=== PATIENT | female | born 1985 | race Caucasian/White ===

== ENCOUNTER 2019-06-16 13:45 | Outpatient (RCR) | payer OTHER, SELFPAY ==
--- NOTE | 2019-04-03 18:24 | PT.OIE ---
Current Diagnoses Separation of muscle (nontraumatic), other site (04/02/19) Past Medical History (Last Updated 08/28/18 @ 21:54 by Lissa Gomez) Asthma (Chronic ~1999) Heavy menstrual period (Chronic ~05/2017) Chicken pox (Resolved ~1988) Past Surgical History (Last Updated 08/28/18 @ 21:54 by Lisas Gomez) Anesthesia (Resolved) History of third molar tooth extraction (~2005) Status post appendectomy (02/05/17) Status post delivery (02/28/14) Status post delivery (10/17/16) Provider Visit Care Team Role Provider Type Keyanna Camara MD Attending Provider Physician Primary Care Provider Specialty: [facility] Practice Address: [address] [place] [address] Email: [email or web address] Physical Therapy Initial Evaluation PT-OP-A Visit Information Start: 04/03/19 17:40 Freq: Status: Active Protocol: Document 04/02/19 11:15 [facility] (Rec: 04/03/19 18:24 [facility] [email or web address]) Out-Patient Physical Therapy Visit Information Visit Information Visit Type Initial Evaluation Visit Note 33 year old female s/p 2 C section deliveries the last one being in December of 2016. She reports she began feeling symptoms of abdominal seperation after her first and C section and then symptoms progressed following her second She also had appendicitis 3 months and underwent surgery for that . She notes feeling weak in her core and has a separation of her abdominal wall. She does report some urinary leakage with cough or sneeze. Visit Start Time 11:15 Visit Stop Time 12:00 Total Visit Minutes 45 Visit Number 1 Evaluation Information Evaluation Date 04/02/19 PT-OP-B Current Condition Start: 04/03/19 17:40 Freq: Status: Active Protocol: Document 04/02/19 11:15 [facility] (Rec: 04/03/19 18:24 [facility] [email or web address]) Current Condition History of Current Condition Onset Date 2 years ago 2017 Current Complaints abdominal separation and weakness of the core Treatment Goals Patient/Caregiver Goals To improve lower abdominal strength and feel like she can work her abdominals safely without harm Current Functional Impairments (Reported) Functional Limitations- ADL's weakness with activities that require trunk control including lifting, bending and abdominal work PT-OP-F Manual Assessment Start: 04/03/19 17:40 Freq: Status: Active Protocol: Document 04/02/19 11:15 [facility] (Rec: 04/03/19 18:24 [facility] [email or web address]) Manual Assessments Soft Tissue Assessment Soft Tissue Mobility Assessment tightness of the lumbar and lower thoracic paraspinals 3 finger width diastasis seperation proximal to umbilicus and 4 finger width distal to umbilicus Joint Mobility Assessment Joint Mobility Assessment lacks full lumbar spine flexion, tends to stay in extension + ALSR test B with abdominal bulge when attempting to lift her legs Other Manual Assessments Other Manual Assessments decreased lumbar active ROM in standing and difficulty laying flat in supine PT-OP-J Posture/Palpation/Skin Start: 04/03/19 17:40 Freq: Status: Active Protocol: Document 04/02/19 11:15 [facility] (Rec: 04/03/19 18:24 [facility] [email or web address]) Palpation Assessment Location One Palpation Location thoracic and lumbar paraspinals Palpation Findings Soft Tissue Tightness Muscle Guarding PT-OP-M Strength Start: 04/03/19 17:40 Freq: Status: Active Protocol: Document 04/02/19 11:15 [facility] (Rec: 04/03/19 18:24 [facility] [email or web address]) Trunk Strength Trunk Manual Muscle Testing Testing Position Supine Flexion 2+ Poor+ Core Stabilization poor core control of lower abdominal muscles, abdominal bulging present with active leg movements PT-OP-Q Treatments Start: 04/03/19 17:40 Freq: Status: Active Protocol: Document 04/02/19 11:15 AM[facility] (Rec: 04/03/19 18:24 [facility] [email or web address]) Therapeutic Exercises Supine Exercises 1 Supine Exercise Name TA engagement with heel slide and marches Side bilateral Comments using hand held mirror to avoid the abdominal bulge Other Exercises 2 Other Exercise Name Quadraped TA facilitation Side bilateral Reps/Minutes x 10 reps 1 Other Exercise Name quadruped pelvic tilts Reps/Minutes x 10 reps PT-OP-T Assessment and Plan Start: 04/03/19 17:40 Freq: Status: Active Protocol: Document 04/02/19 11:15 AM[facility] (Rec: 04/03/19 18:24 [facility] [email or web address]) Physical Therapy Assessment Rehab Potential Rehabilitation Potential Excellent Impairments Impairments Activity Tolerance Functional Activities Functional Mobility ROM Soft Tissue Mobility Strength Tone Goals Three Impairment Decreased lumbar flexion and tightness of the paraspinals, anterior pelvis Senior Care Goal (LTG) Nesha presents with improved lumbar motion into flexion and there is decreased guarding of the lumbar parapsinals creating the ability for her pelvis to rest in neutral rather than a anterior pelvic tilt. Two Impairment Instability of the SI joint and pelvis + ASLR test B Short Term Goal (STG) With proper stabilization Nesha is able to move her hips independent of her pelvis moving STG Duration 4-6 weeks [employer] Goal (LTG) With proper stabilization Nesha is able to perform a split squat without abdominal bulging and good SI support LTG Duration 8 weeks One Impairment Abdominal bulging and separation with diastasis recti Short Term Goal (STG) Nesha is educated on Transverse abdominal facilitation prior to LE movement in a supine position and she is able to control abdominal bulging with heel slides STG Duration 4 weeks Senior Care Goal (LTG) Nesha is able to control abdominal bulging with a gentle curl up using her transverse abdominal muscles LTG Duration 6-8 weeks Assessment Summary Assessment Nesha presents to physical therapy today with diastiasis of 3 finger width proximal to her umbilicus and 4 finger width distal to her umbilicus. She is weak in her deep transverse abdominal muscles and pelvic floor as well as her rectus abdominus. She demonstrates abdominal bulging with any leg movement in a supine position. Her low back muscles are also very tight causing her to arch her back and it is difficult to fully flex her spine. Today I started her with neuro re- education of her pelvic floor and transverse abdominal wall. After verbal cueing she was able to facilitate her Transverse abdominals and could perform a heel slide keeping the abdominal wall from bulging. I had Nesha use a hand help mirror for biofeedback to avoid bulging as she is working on her exercises. She is a good candidate for PT and treatment will include neuro re- education of the pelvic floor and transverse abdominal muscles, postural cues and education, body mechanics training and stretching program. Manual therapy for improved lumbar spine mobility will also be used. Thank you for this referral Physical Therapy Plan Frequency and Duration Frequency of Treatment 1x/Week Duration of Treatment 8 weeks Plan of Care Start Date 04/02/19 Plan of Care End Date 05/28/19 Therapeutic Interventions Therapeutic Interventions Home Exercise Program Manual Therapy Neuromuscular Re-education Patient/Caregiver Education Self-Care/Home Management Soft Tissue Mobilization Therapeutic Exercises Modalities Biofeedback Next Visit Focus/Plan Next Note Type Treatment Note Next Visit Plan Review quadruped Transverse abdominal stabilization and facilitation in supine, progress pelvic floor stabilization as tolerated
--- NOTE | 2019-04-08 17:21 | PT.OTN ---
Current Diagnoses Separation of muscle (nontraumatic), other site (04/08/19) Physical Therapy Treatment Note PT-OP-A Visit Information Start: 04/03/19 17:40 Freq: Status: Active Protocol: Document 04/08/19 16:59 AMH (Rec: 04/08/19 17:20 [facility] [email or web address]) Out-Patient Physical Therapy Visit Information Visit Information Visit Type Treatment Note Visit Start Time 16:00 Visit Stop Time 16:45 Total Visit Minutes 45 Visit Number 2 Evaluation Information Evaluation Date 04/02/19 PT-OP-B Current Condition Start: 04/03/19 17:40 Freq: Status: Active Protocol: Document 04/02/19 11:15 AMH (Rec: 04/03/19 18:24 [facility] [email or web address]) Current Condition History of Current Condition Onset Date 2 years ago 2017 Current Complaints abdominal seperation and weakness of the core Treatment Goals Patient/Caregiver Goals To improve lower abdominal strength and feel like she can work her abdominals safely without harm Current Functional Impairments (Reported) Functional Limitations- ADL's weakness with activities that require trunk control including lifting, bending and abdominal work PT-OP-C Subjective Start: 04/03/19 17:40 Freq: Status: Active Protocol: Document 04/08/19 17:20 AMH (Rec: 04/08/19 17:20 [facility] [email or web address]) OP-PT Subjective Patient Comments Patient Comments Nesha reports she has been working on her execises, her low back has been a little sore but she notes she also started her period so she is not sure what caused the soreness PT-OP-F Manual Assessment Start: 04/03/19 17:40 Freq: Status: Active Protocol: Document 04/02/19 11:15 AMH (Rec: 04/03/19 18:24 AMH [email or web address]) Manual Assessments Soft Tissue Assessment Soft Tissue Mobility Assessment tightness of the lumbar and lower thoracic paraspinals 3 finger width diastasis seperation proximal to umbilicus and 4 finger width distal to umbilicus Joint Mobility Assessment Joint Mobility Assessment lacks full lumbar spine flexion, tends to stay in extension + ALSR test B with abdominal bulge when attempting to lift her legs Other Manual Assessments Other Manual Assessments decreased lumbar active ROM in standing and difficulty laying flat in supine PT-OP-J Posture/Palpation/Skin Start: 04/03/19 17:40 Freq: Status: Active Protocol: Document 04/02/19 11:15 AMH (Rec: 04/03/19 18:24 [facility] [email or web address]) Palpation Assessment Location One Palpation Location thoracic and lumbar paraspinals Palpation Findings Soft Tissue Tightness Muscle Guarding PT-OP-M Strength Start: 04/03/19 17:40 Freq: Status: Active Protocol: Document 04/02/19 11:15 AMH (Rec: 04/03/19 18:24 [facility] [email or web address]) Trunk Strength Trunk Manual Muscle Testing Testing Position Supine Flexion 2+ Poor+ Core Stabilization poor core control of lower abdominal muscles, abdominal bulging present with active leg movements PT-OP-Q Treatments Start: 04/03/19 17:40 Freq: Status: Active Protocol: Document 04/08/19 16:59 AMH (Rec: 04/08/19 17:20 [facility] [email or web address]) Therapeutic Exercises Supine Exercises 5 Supine Exercise Name 1/2 foam roll stretch Reps/Minutes x 4 min 4 Supine Exercise Name ball squeeze with bridge Reps/Minutes x 10 reps Comments worked on segmental raising and lowering 3 Supine Exercise Name jimmy test position iliopsoas stretch Reps/Minutes bilateral x 1 min each 2 Supine Exercise Name TA faciliatation with SLR on right side only Comments held off on left side due to increased bulge 1 Supine Exercise Name TA engagement with heel slide and marches Side bilateral Comments did not require mirror, only one leg at a time to avoid abdominal bulge Other Exercises 3 Other Exercise Name kelle pose 2 Other Exercise Name Quadraped TA facilitation Side bilateral Reps/Minutes x 10 reps Comments worked on elevator floors with contraction for eccentric control 1 Other Exercise Name quadruped pelvic tilts Reps/Minutes x 10 reps PT-OP-T Assessment and Plan Start: 04/03/19 17:40 Freq: Status: Active Protocol: Document 04/08/19 16:59 AMH (Rec: 04/08/19 17:20 [facility] [email or web address]) Physical Therapy Assessment Assessment Summary Assessment Good improvement today with facilitation of the transverse abdominal muscles. Nesha was able to perform single leg heel slides and marches but had difficulty with alternating sides, she could do a SLR with TA engagement on the right but not yet on the left side. Her hip flexor is much tighter on the left as compared to the right so we did add in iliopsoas stretches today. Physical Therapy Plan Frequency and Duration Frequency of Treatment 1x/Week Duration of Treatment 8 weeks Plan of Care Start Date 04/02/19 Plan of Care End Date 05/28/19 Therapeutic Interventions Therapeutic Interventions Home Exercise Program Manual Therapy Neuromuscular Re-education Patient/Caregiver Education Self-Care/Home Management Soft Tissue Mobilization Therapeutic Exercises Modalities Biofeedback Next Visit Focus/Plan Next Note Type Treatment Note Next Visit Plan continue to progress TA stabilization and pelvic floor stabilization without abdominal bulge and increased pressure
--- NOTE | 2019-04-15 14:14 | PT.OTN ---
Current Diagnoses Separation of muscle (nontraumatic), other site (04/15/19) Physical Therapy Treatment Note PT-OP-A Visit Information Start: 04/03/19 17:40 Freq: Status: Active Protocol: Document 04/15/19 14:04 AMH (Rec: 04/15/19 14:13 [facility] [email or web address]) Out-Patient Physical Therapy Visit Information Visit Information Visit Type Treatment Note Visit Start Time 13:00 Visit Stop Time 13:45 Total Visit Minutes 45 Visit Number 3 PT-OP-B Current Condition Start: 04/03/19 17:40 Freq: Status: Active Protocol: Document 04/02/19 11:15 AM[facility] (Rec: 04/03/19 18:24 [facility] [email or web address]) Current Condition History of Current Condition Onset Date 2 years ago 2017 Current Complaints abdominal seperation and weakness of the core Treatment Goals Patient/Caregiver Goals To improve lower abdominal strength and feel like she can work her abdominals safely without harm Current Functional Impairments (Reported) Functional Limitations- ADL's weakness with activities that require trunk control including lifting, bending and abdominal work PT-OP-C Subjective Start: 04/03/19 17:40 Freq: Status: Active Protocol: Document 04/15/19 14:04 AM[facility] (Rec: 04/15/19 14:13 [facility] [email or web address]) OP-PT Subjective Patient Comments Patient Comments Nesha has been working on her home exercise program she feels like she is more aware of her abdominal muscles now and trying to avoid over arching her low back PT-OP-F Manual Assessment Start: 04/03/19 17:40 Freq: Status: Active Protocol: Document 04/02/19 11:15 AMH (Rec: 04/03/19 18:24 [facility] [email or web address]) Manual Assessments Soft Tissue Assessment Soft Tissue Mobility Assessment tightness of the lumbar and lower thoracic paraspinals 3 finger width diastasis seperation proximal to umbilicus and 4 finger width distal to umbilicus Joint Mobility Assessment Joint Mobility Assessment lacks full lumbar spine flexion, tends to stay in extension + ALSR test B with abdominal bulge when attempting to lift her legs Other Manual Assessments Other Manual Assessments decreased lumbar active ROM in standing and difficulty laying flat in supine PT-OP-J Posture/Palpation/Skin Start: 04/03/19 17:40 Freq: Status: Active Protocol: Document 04/02/19 11:15 AMH (Rec: 04/03/19 18:24 AMH [email or web address]) Palpation Assessment Location One Palpation Location thoracic and lumbar paraspinals Palpation Findings Soft Tissue Tightness Muscle Guarding PT-OP-M Strength Start: 04/03/19 17:40 Freq: Status: Active Protocol: Document 04/02/19 11:15 AMH (Rec: 04/03/19 18:24 AMH [email or web address]) Trunk Strength Trunk Manual Muscle Testing Testing Position Supine Flexion 2+ Poor+ Core Stabilization poor core control of lower abdominal muscles, abdominal bulging present with active leg movements PT-OP-Q Treatments Start: 04/03/19 17:40 Freq: Status: Active Protocol: Document 04/15/19 14:04 AMH (Rec: 04/15/19 14:13 AMH [email or web address]) Therapeutic Exercises Supine Exercises 6 Supine Exercise Name TA lower abdominal progression level 1b Comments march up up down down 5 Supine Exercise Name 1/2 foam roll stretch Reps/Minutes x 4 min 4 Supine Exercise Name ball squeeze with bridge Reps/Minutes x 10 reps Comments worked on segmental raising and lowering 3 Supine Exercise Name jimmy test position iliopsoas stretch Reps/Minutes bilateral x 1 min each 2 Supine Exercise Name TA faciliatation with SLR bilateral sides today Comments good stabilization bilaterally today 1 Supine Exercise Name TA engagement with heel slide and marches Side bilateral Comments able to do alternating marches today Other Exercises 4 Other Exercise Name quadraped OAL Reps/Minutes x 4 reps each side 3 Other Exercise Name kelle pose 2 Other Exercise Name Quadraped TA facilitation Side bilateral Reps/Minutes x 10 reps Comments worked on elevator floors with contraction for eccentric control 1 Other Exercise Name quadruped pelvic tilts Reps/Minutes x 10 reps PT-OP-T Assessment and Plan Start: 04/03/19 17:40 Freq: Status: Active Protocol: Document 04/15/19 14:04 AMH (Rec: 04/15/19 14:13 [facility]H [email or web address]) Physical Therapy Assessment Assessment Summary Assessment Nesha is demonstrating improved facilitation of the lower abdominals and pelvic floor. She was able to perform alternate marches today and SLR each side without abdominal bulging. We are working on her lumbar flexion as well and she is doing better with this. Continue to progress stabilization as we add in more dynamic movement. I watch her belly with her abdominal exercises for any abdominal bulging Physical Therapy Plan Next Visit Focus/Plan Next Note Type Treatment Note Next Visit Plan begin standing squats with abdominal bracing, recheck TA engagement with level 1b lower abdominal progression( december up down down) Progress as tolerated with ther ex.
--- NOTE | 2019-04-24 09:30 | PT.OTN ---
Current Diagnoses Separation of muscle (nontraumatic), other site (04/24/19) Physical Therapy Treatment Note PT-OP-A Visit Information Start: 04/03/19 17:40 Freq: Status: Active Protocol: Document 04/24/19 09:19 AMB (Rec: 04/24/19 09:30 AMB [email or web address]) Out-Patient Physical Therapy Visit Information Visit Information Visit Type Treatment Note Visit Start Time 08:15 Visit Stop Time 09:00 Total Visit Minutes 45 Visit Number 4 PT-OP-B Current Condition Start: 04/03/19 17:40 Freq: Status: Active Protocol: Document 04/02/19 11:15 AMH (Rec: 04/03/19 18:24 [facility]H [email or web address]) Current Condition History of Current Condition Onset Date 2 years ago 2017 Current Complaints abdominal seperation and weakness of the core Treatment Goals Patient/Caregiver Goals To improve lower abdominal strength and feel like she can work her abdominals safely without harm Current Functional Impairments (Reported) Functional Limitations- ADL's weakness with activities that require trunk control including lifting, bending and abdominal work PT-OP-C Subjective Start: 04/03/19 17:40 Freq: Status: Active Protocol: Document 04/24/19 09:19 AMB (Rec: 04/24/19 09:30 AMB [email or web address]) OP-PT Subjective Patient Comments Patient Comments Nesha feels like she has been improving in her abdominal control. She does continue to notice back tightness. PT-OP-F Manual Assessment Start: 04/03/19 17:40 Freq: Status: Active Protocol: Document 04/02/19 11:15 AMH (Rec: 04/03/19 18:24 [facility]H [email or web address]) Manual Assessments Soft Tissue Assessment Soft Tissue Mobility Assessment tightness of the lumbar and lower thoracic paraspinals 3 finger width diastasis seperation proximal to umbilicus and 4 finger width distal to umbilicus Joint Mobility Assessment Joint Mobility Assessment lacks full lumbar spine flexion, tends to stay in extension + ALSR test B with abdominal bulge when attempting to lift her legs Other Manual Assessments Other Manual Assessments decreased lumbar active ROM in standing and difficulty laying flat in supine PT-OP-J Posture/Palpation/Skin Start: 04/03/19 17:40 Freq: Status: Active Protocol: Document 04/02/19 11:15 AMH (Rec: 04/03/19 18:24 [facility]H [email or web address]) Palpation Assessment Location One Palpation Location thoracic and lumbar paraspinals Palpation Findings Soft Tissue Tightness Muscle Guarding PT-OP-M Strength Start: 04/03/19 17:40 Freq: Status: Active Protocol: Document 04/02/19 11:15 AMH (Rec: 04/03/19 18:24 AMH [email or web address]) Trunk Strength Trunk Manual Muscle Testing Testing Position Supine Flexion 2+ Poor+ Core Stabilization poor core control of lower abdominal muscles, abdominal bulging present with active leg movements PT-OP-Q Treatments Start: 04/03/19 17:40 Freq: Status: Active Protocol: Document 04/24/19 09:19 AMB (Rec: 04/24/19 09:30 AMB [email or web address]) Therapeutic Exercises Supine Exercises 6 Supine Exercise Name TA lower abdominal progression level 1b Comments march up up down down 3 Supine Exercise Name jimmy test position iliopsoas stretch Reps/Minutes bilateral x 1 min each 2 Supine Exercise Name TA faciliatation with SLR bilateral sides today Equipment Used can use sheet for extra stability Comments good stabilization bilaterally today 1 Supine Exercise Name TA engagement with heel slide and marches Side bilateral Comments larger alt marches today Sidelying Exercises 1 Sidelying Exercise Name hip abduction SLR Comments with stabilization Sitting Exercises 1 Sitting Exercise Name on 65cm therapy ball Comments marches with TA stabilization Other Exercises 4 Other Exercise Name quadraped OAL Reps/Minutes x 4 reps each side 2 Other Exercise Name Quadraped TA facilitation Side bilateral Reps/Minutes x 10 reps Comments worked on elevator floors with contraction for eccentric control PT-OP-T Assessment and Plan Start: 04/03/19 17:40 Freq: Status: Active Protocol: Document 04/24/19 09:19 AMB (Rec: 04/24/19 09:30 AMB [email or web address]) Physical Therapy Assessment Assessment Summary Assessment No bulging with exercises today, did tolerate seated therapy ball exercises well, initial back tightness, but decreased with repetitions. Physical Therapy Plan Frequency and Duration Frequency of Treatment 1x/Week Duration of Treatment 8 weeks Plan of Care Start Date 04/02/19 Plan of Care End Date 05/28/19 Next Visit Focus/Plan Next Note Type Treatment Note Next Visit Plan Assess squats and standing exercises for return to gentle gym exercise program.
--- NOTE | 2019-05-02 11:01 | PT.OTN ---
Current Diagnoses Separation of muscle (nontraumatic), other site (05/02/19) Physical Therapy Treatment Note PT-OP-A Visit Information Start: 04/03/19 17:40 Freq: Status: Active Protocol: Document 05/02/19 10:47 AMB (Rec: 05/02/19 11:01 AMB [email or web address]) Out-Patient Physical Therapy Visit Information Visit Information Visit Type Treatment Note Visit Start Time 08:15 Visit Stop Time 09:00 Total Visit Minutes 45 Visit Number 5 PT-OP-B Current Condition Start: 04/03/19 17:40 Freq: Status: Active Protocol: Document 04/02/19 11:15 AMH (Rec: 04/03/19 18:24 AMH [email or web address]) Current Condition History of Current Condition Onset Date 2 years ago 2017 Current Complaints abdominal seperation and weakness of the core Treatment Goals Patient/Caregiver Goals To improve lower abdominal strength and feel like she can work her abdominals safely without harm Current Functional Impairments (Reported) Functional Limitations- ADL's weakness with activities that require trunk control including lifting, bending and abdominal work PT-OP-C Subjective Start: 04/03/19 17:40 Freq: Status: Active Protocol: Document 05/02/19 10:47 AMB (Rec: 05/02/19 11:01 AMB [email or web address]) OP-PT Subjective Patient Comments Patient Comments Nesha notes increased back pain today after driving down to [place] in the back of a car yesterday. PT-OP-F Manual Assessment Start: 04/03/19 17:40 Freq: Status: Active Protocol: Document 04/02/19 11:15 AMH (Rec: 04/03/19 18:24 AMH [email or web address]) Manual Assessments Soft Tissue Assessment Soft Tissue Mobility Assessment tightness of the lumbar and lower thoracic paraspinals 3 finger width diastasis seperation proximal to umbilicus and 4 finger width distal to umbilicus Joint Mobility Assessment Joint Mobility Assessment lacks full lumbar spine flexion, tends to stay in extension + ALSR test B with abdominal bulge when attempting to lift her legs Other Manual Assessments Other Manual Assessments decreased lumbar active ROM in standing and difficulty laying flat in supine PT-OP-J Posture/Palpation/Skin Start: 04/03/19 17:40 Freq: Status: Active Protocol: Document 04/02/19 11:15 AMH (Rec: 04/03/19 18:24 AMH [email or web address]) Palpation Assessment Location One Palpation Location thoracic and lumbar paraspinals Palpation Findings Soft Tissue Tightness Muscle Guarding PT-OP-M Strength Start: 04/03/19 17:40 Freq: Status: Active Protocol: Document 04/02/19 11:15 AMH (Rec: 04/03/19 18:24 AMH [email or web address]) Trunk Strength Trunk Manual Muscle Testing Testing Position Supine Flexion 2+ Poor+ Core Stabilization poor core control of lower abdominal muscles, abdominal bulging present with active leg movements PT-OP-Q Treatments Start: 04/03/19 17:40 Freq: Status: Active Protocol: Document 05/02/19 10:47 AMB (Rec: 05/02/19 11:01 AMB [email or web address]) Therapeutic Exercises Supine Exercises 6 Supine Exercise Name TA lower abdominal progression level 1b Comments march up up down down 4 Supine Exercise Name ball squeeze with bridge Reps/Minutes x 10 reps Comments worked on segmental raising and lowering 2 Supine Exercise Name TA faciliatation with SLR bilateral sides today Comments good stabilization bilaterally today 1 Supine Exercise Name TA engagement with heel slide and marches Side bilateral Comments table top and slowly lower alt bent leg Other Exercises 4 Other Exercise Name quadraped OAL Reps/Minutes x 4 reps each side 2 Other Exercise Name Quadraped TA facilitation Side bilateral Reps/Minutes x 10 reps Comments worked on elevator floors with contraction for eccentric control 1 Other Exercise Name quadruped pelvic tilts Reps/Minutes x 10 reps Manual Therapy Treatment Taping 1 Body Location abdomen Treatment Focus herringbone pattern Type of Tape Kinesio Tape PT-OP-T Assessment and Plan Start: 04/03/19 17:40 Freq: Status: Active Protocol: Document 05/02/19 10:47 AMB (Rec: 05/02/19 11:01 AMB [email or web address]) Physical Therapy Assessment Assessment Summary Assessment Nesha tolerated table top positon well without bulging, but fatigues quickly. Physical Therapy Plan Next Visit Focus/Plan Next Note Type Treatment Note Next Visit Plan Assess squats and functional movments
--- NOTE | 2019-05-21 16:18 | PT.OTN ---
Current Diagnoses Separation of muscle (nontraumatic), other site (05/21/19) Physical Therapy Treatment Note PT-OP-A Visit Information Start: 04/03/19 17:40 Freq: Status: Active Protocol: Document 05/21/19 08:15 AMB (Rec: 05/21/19 10:30 AMB [email or web address]) Out-Patient Physical Therapy Visit Information Visit Information Visit Type Treatment Note Visit Start Time 08:15 Visit Stop Time 09:00 Total Visit Minutes 45 Visit Number 6 PT-OP-B Current Condition Start: 04/03/19 17:40 Freq: Status: Active Protocol: Document 04/02/19 11:15 AMH (Rec: 04/03/19 18:24 AMH [email or web address]) Current Condition History of Current Condition Onset Date 2 years ago 2017 Current Complaints abdominal seperation and weakness of the core Treatment Goals Patient/Caregiver Goals To improve lower abdominal strength and feel like she can work her abdominals safely without harm Current Functional Impairments (Reported) Functional Limitations- ADL's weakness with activities that require trunk control including lifting, bending and abdominal work PT-OP-C Subjective Start: 04/03/19 17:40 Freq: Status: Active Protocol: Document 05/21/19 08:15 AMB (Rec: 05/21/19 10:30 AMB [email or web address]) OP-PT Subjective Patient Comments Patient Comments Nesha returns from vacation and needed to bring her kids with her to the appointment today. She feels overall that she is getting stronger in her abdomen, but feels the rest of her body is still very weak. PT-OP-F Manual Assessment Start: 04/03/19 17:40 Freq: Status: Active Protocol: Document 04/02/19 11:15 AMH (Rec: 04/03/19 18:24 AMH [email or web address]) Manual Assessments Soft Tissue Assessment Soft Tissue Mobility Assessment tightness of the lumbar and lower thoracic paraspinals 3 finger width diastasis seperation proximal to umbilicus and 4 finger width distal to umbilicus Joint Mobility Assessment Joint Mobility Assessment lacks full lumbar spine flexion, tends to stay in extension + ALSR test B with abdominal bulge when attempting to lift her legs Other Manual Assessments Other Manual Assessments decreased lumbar active ROM in standing and difficulty laying flat in supine PT-OP-J Posture/Palpation/Skin Start: 04/03/19 17:40 Freq: Status: Active Protocol: Document 04/02/19 11:15 AMH (Rec: 04/03/19 18:24 AMH [email or web address]) Palpation Assessment Location One Palpation Location thoracic and lumbar paraspinals Palpation Findings Soft Tissue Tightness Muscle Guarding PT-OP-M Strength Start: 04/03/19 17:40 Freq: Status: Active Protocol: Document 04/02/19 11:15 AMH (Rec: 04/03/19 18:24 AMH [email or web address]) Trunk Strength Trunk Manual Muscle Testing Testing Position Supine Flexion 2+ Poor+ Core Stabilization poor core control of lower abdominal muscles, abdominal bulging present with active leg movements PT-OP-Q Treatments Start: 04/03/19 17:40 Freq: Status: Active Protocol: Document 05/21/19 08:15 AMB (Rec: 05/21/19 16:18 AMB [email or web address]) Therapeutic Exercises Supine Exercises 6 Supine Exercise Name TA lower abdominal progression level 1b Comments march up up down down 4 Supine Exercise Name ball squeeze with bridge Reps/Minutes x 10 reps Comments worked on segmental raising and lowering 1 Supine Exercise Name TA engagement with heel slide and marches Side bilateral Comments table top and slowly lower alt bent leg Sitting Exercises 1 Sitting Exercise Name on 65cm therapy ball Comments marches with TA stabilization Standing Exercises 2 Standing Exercise Name standing pushups Reps/Minutes 15 Comments with TA and pelvic floor 1 Standing Exercise Name mini squats Reps/Minutes 15 Comments with TA and pelvic floor Other Exercises 4 Other Exercise Name quadraped OAL Reps/Minutes x 4 reps each side 2 Other Exercise Name Quadraped TA facilitation Side bilateral Reps/Minutes x 10 reps Comments worked on elevator floors with contraction for eccentric control PT-OP-T Assessment and Plan Start: 04/03/19 17:40 Freq: Status: Active Protocol: Document 05/21/19 08:15 AMB (Rec: 05/21/19 12:58 AMB [email or web address]) Physical Therapy Assessment Assessment Summary Assessment Nesha has improved with activation of her TrA, squat form was ok but could be refined more when kids not present. Encouraged Nesha in body mechanics with lifting/ carrying her kids. continue to reinforce importance of breathing. Physical Therapy Plan Next Visit Focus/Plan Next Note Type Progress Note Next Visit Plan re-evaluate TrA strength.
--- NOTE | 2019-06-02 17:08 | PT.OTN ---
Current Diagnoses Separation of muscle (nontraumatic), other site (06/02/19) Physical Therapy Treatment Note PT-OP-A Visit Information Start: 04/03/19 17:40 Freq: Status: Active Protocol: Document 06/02/19 11:15 AMB (Rec: 06/02/19 17:03 AMB [email or web address]) Out-Patient Physical Therapy Visit Information Visit Information Visit Type Progress Note Visit Start Time 11:20 Visit Stop Time 12:00 Total Visit Minutes 40 Visit Number 7 PT-OP-B Current Condition Start: 04/03/19 17:40 Freq: Status: Active Protocol: Document 04/02/19 11:15 AMH (Rec: 04/03/19 18:24 AMH [email or web address]) Current Condition History of Current Condition Onset Date 2 years ago 2017 Current Complaints abdominal seperation and weakness of the core Treatment Goals Patient/Caregiver Goals To improve lower abdominal strength and feel like she can work her abdominals safely without harm Current Functional Impairments (Reported) Functional Limitations- ADL's weakness with activities that require trunk control including lifting, bending and abdominal work PT-OP-C Subjective Start: 04/03/19 17:40 Freq: Status: Active Protocol: Document 06/02/19 11:15 AMB (Rec: 06/02/19 17:03 AMB [email or web address]) OP-PT Subjective Patient Comments Patient Comments Nesha feels like she is getting stronger, she did notice a leak while playing kick ball, but other than that feels like that is getting better too. PT-OP-F Manual Assessment Start: 04/03/19 17:40 Freq: Status: Active Protocol: Document 04/02/19 11:15 AMH (Rec: 04/03/19 18:24 AMH [email or web address]) Manual Assessments Soft Tissue Assessment Soft Tissue Mobility Assessment tightness of the lumbar and lower thoracic paraspinals 3 finger width diastasis seperation proximal to umbilicus and 4 finger width distal to umbilicus Joint Mobility Assessment Joint Mobility Assessment lacks full lumbar spine flexion, tends to stay in extension + ALSR test B with abdominal bulge when attempting to lift her legs Other Manual Assessments Other Manual Assessments decreased lumbar active ROM in standing and difficulty laying flat in supine PT-OP-J Posture/Palpation/Skin Start: 04/03/19 17:40 Freq: Status: Active Protocol: Document 04/02/19 11:15 AMH (Rec: 04/03/19 18:24 AMH [email or web address]) Palpation Assessment Location One Palpation Location thoracic and lumbar paraspinals Palpation Findings Soft Tissue Tightness Muscle Guarding PT-OP-M Strength Start: 04/03/19 17:40 Freq: Status: Active Protocol: Document 04/02/19 11:15 AMH (Rec: 04/03/19 18:24 AMH [email or web address]) Trunk Strength Trunk Manual Muscle Testing Testing Position Supine Flexion 2+ Poor+ Core Stabilization poor core control of lower abdominal muscles, abdominal bulging present with active leg movements PT-OP-Q Treatments Start: 04/03/19 17:40 Freq: Status: Active Protocol: Document 05/21/19 08:15 AMB (Rec: 05/21/19 16:18 AMB [email or web address]) Therapeutic Exercises Supine Exercises 6 Supine Exercise Name TA lower abdominal progression level 1b Comments march up up down down 4 Supine Exercise Name ball squeeze with bridge Reps/Minutes x 10 reps Comments worked on segmental raising and lowering 1 Supine Exercise Name TA engagement with heel slide and marches Side bilateral Comments table top and slowly lower alt bent leg Sitting Exercises 1 Sitting Exercise Name on 65cm therapy ball Comments marches with TA stabilization Standing Exercises 2 Standing Exercise Name standing pushups Reps/Minutes 15 Comments with TA and pelvic floor 1 Standing Exercise Name mini squats Reps/Minutes 15 Comments with TA and pelvic floor Other Exercises 4 Other Exercise Name quadraped OAL Reps/Minutes x 4 reps each side 2 Other Exercise Name Quadraped TA facilitation Side bilateral Reps/Minutes x 10 reps Comments worked on elevator floors with contraction for eccentric control PT-OP-T Assessment and Plan Start: 04/03/19 17:40 Freq: Status: Active Protocol: Document 06/02/19 11:15 AMB (Rec: 06/02/19 17:08 AMB [email or web address]) Physical Therapy Assessment Goals Three Impairment Decreased lumbar flexion and tightness of the paraspinals, anterior pelvis Diet Supervisor Goal (LTG) Nesha presents with improved lumbar motion into flexion and there is decreased guarding of the lumbar parapsinals creating the ability for her pelvis to rest in neutral rather than a anterior pelvic tilt. LTG Duration NOT YET MET Two Impairment Instability of the SI joint and pelvis + ASLR test B Short Term Goal (STG) With proper stabilization Nesha is able to move her hips independent of her pelvis moving STG Duration MET Diet Supervisor Goal (LTG) With proper stabilization Nesha is able to perform a split squat without abdominal bulging and good SI support LTG Duration MET One Impairment Abdominal bulging and seperation with diastasis recti Short Term Goal (STG) Nesha is educated on Transverse abdominal facilitation prior to LE movement in a supine position and she is able to control abdominal bulging with heel slides STG Duration MET Diet Supervisor Goal (LTG) Nesha is able to control abdominal bulging with a gentle curl up using her transverse abdominal muscles LTG Duration MET Assessment Summary Assessment Nesha has improved her SLR and curl up without coning. She continues to standing in anterior pelvic tilt but is able to come out of it with cues. Nesha has otherwise met the majority of her goals, she continues to have a 1.5 finger width diastasis, but this is less width than at eval. She is continuing to hope that this will continue to improve with more core progression. She would benefit from a few more visits of PT to finalize her program and progress it as much as possible. Physical Therapy Plan Frequency and Duration Frequency of Treatment 1x/Week Duration of Treatment 4 weeks Plan of Care Start Date 04/02/19 Plan of Care End Date 05/28/19 Therapeutic Interventions Therapeutic Interventions Home Exercise Program Manual Therapy Neuromuscular Re-education Patient/Caregiver Education Self-Care/Home Management Soft Tissue Mobilization Therapeutic Exercises Modalities Biofeedback Next Visit Focus/Plan Next Note Type Treatment Note Next Visit Plan Begin to finalize HEP
--- NOTE | 2019-06-02 17:14 | PT.OTN ---
Current Diagnoses Separation of muscle (nontraumatic), other site (06/02/19) Physical Therapy Treatment Note PT-OP-A Visit Information Start: 04/03/19 17:40 Freq: Status: Active Protocol: Document 06/02/19 11:15 AMB (Rec: 06/02/19 17:03 AMB [email or web address]) Out-Patient Physical Therapy Visit Information Visit Information Visit Type Progress Note Visit Start Time 11:20 Visit Stop Time 12:00 Total Visit Minutes 40 Visit Number 7 PT-OP-B Current Condition Start: 04/03/19 17:40 Freq: Status: Active Protocol: Document 04/02/19 11:15 AMH (Rec: 04/03/19 18:24 AMH [email or web address]) Current Condition History of Current Condition Onset Date 2 years ago 2017 Current Complaints abdominal seperation and weakness of the core Treatment Goals Patient/Caregiver Goals To improve lower abdominal strength and feel like she can work her abdominals safely without harm Current Functional Impairments (Reported) Functional Limitations- ADL's weakness with activities that require trunk control including lifting, bending and abdominal work PT-OP-C Subjective Start: 04/03/19 17:40 Freq: Status: Active Protocol: Document 06/02/19 11:15 AMB (Rec: 06/02/19 17:03 AMB [email or web address]) OP-PT Subjective Patient Comments Patient Comments Nesha feels like she is getting stronger, she did notice a leak while playing kick ball, but other than that feels like that is getting better too. PT-OP-F Manual Assessment Start: 04/03/19 17:40 Freq: Status: Active Protocol: Document 04/02/19 11:15 AMH (Rec: 04/03/19 18:24 AMH [email or web address]) Manual Assessments Soft Tissue Assessment Soft Tissue Mobility Assessment tightness of the lumbar and lower thoracic paraspinals 3 finger width diastasis seperation proximal to umbilicus and 4 finger width distal to umbilicus Joint Mobility Assessment Joint Mobility Assessment lacks full lumbar spine flexion, tends to stay in extension + ALSR test B with abdominal bulge when attempting to lift her legs Other Manual Assessments Other Manual Assessments decreased lumbar active ROM in standing and difficulty laying flat in supine PT-OP-J Posture/Palpation/Skin Start: 04/03/19 17:40 Freq: Status: Active Protocol: Document 04/02/19 11:15 AMH (Rec: 04/03/19 18:24 AMH [email or web address]) Palpation Assessment Location One Palpation Location thoracic and lumbar paraspinals Palpation Findings Soft Tissue Tightness Muscle Guarding PT-OP-M Strength Start: 04/03/19 17:40 Freq: Status: Active Protocol: Document 04/02/19 11:15 AMH (Rec: 04/03/19 18:24 AMH [email or web address]) Trunk Strength Trunk Manual Muscle Testing Testing Position Supine Flexion 2+ Poor+ Core Stabilization poor core control of lower abdominal muscles, abdominal bulging present with active leg movements PT-OP-Q Treatments Start: 04/03/19 17:40 Freq: Status: Active Protocol: Document 06/02/19 11:15 AMB (Rec: 06/02/19 17:14 AMB [email or web address]) Therapeutic Exercises Supine Exercises 7 Supine Exercise Name modified air bike Reps/Minutes 10 Comments one leg bent, one straight with pause between reps to reset 6 Supine Exercise Name TA lower abdominal progression level 1b Comments march up up down down Other Exercises 5 Other Exercise Name wall plank, countertop plank, regular plank Comments countertop plank for HEP PT-OP-T Assessment and Plan Start: 04/03/19 17:40 Freq: Status: Active Protocol: Document 06/02/19 11:15 AMB (Rec: 06/02/19 17:08 AMB [email or web address]) Physical Therapy Assessment Goals Three Impairment Decreased lumbar flexion and tightness of the paraspinals, anterior pelvis Product Manufacturing Professional Goal (LTG) Nesha presents with improved lumbar motion into flexion and there is decreased guarding of the lumbar parapsinals creating the ability for her pelvis to rest in neutral rather than a anterior pelvic tilt. LTG Duration NOT YET MET Two Impairment Instability of the SI joint and pelvis + ASLR test B Short Term Goal (STG) With proper stabilization Nesha is able to move her hips independent of her pelvis moving STG Duration MET Group Home Goal (LTG) With proper stabilization Nesha is able to perform a split squat without abdominal bulging and good SI support LTG Duration MET One Impairment Abdominal bulging and seperation with diastasis recti Short Term Goal (STG) Nesha is educated on Transverse abdominal facilitation prior to LE movement in a supine position and she is able to control abdominal bulging with heel slides STG Duration MET Group Home Goal (LTG) Nesha is able to control abdominal bulging with a gentle curl up using her transverse abdominal muscles LTG Duration MET Assessment Summary Assessment Nesha has improved her SLR and curl up without coning. She continues to standing in anterior pelvic tilt but is able to come out of it with cues. Nesha has otherwise met the majority of her goals, she continues to have a 1.5 finger width diastasis, but this is less width than at eval. She is continuing to hope that this will continue to improve with more core progression. She would benefit from a few more visits of PT to finalize her program and progress it as much as possible. Physical Therapy Plan Frequency and Duration Frequency of Treatment 1x/Week Duration of Treatment 4 weeks Plan of Care Start Date 04/02/19 Plan of Care End Date 05/28/19 Therapeutic Interventions Therapeutic Interventions Home Exercise Program Manual Therapy Neuromuscular Re-education Patient/Caregiver Education Self-Care/Home Management Soft Tissue Mobilization Therapeutic Exercises Modalities Biofeedback Next Visit Focus/Plan Next Note Type Treatment Note Next Visit Plan Begin to finalize HEP
--- NOTE | 2019-06-02 17:17 | PT.OPPOC ---
Current Diagnoses Separation of muscle (nontraumatic), other site (06/02/19) Provider Visit Care Team Role Provider Type Keyanna Camara MD Attending Provider Physician Primary Care Provider Specialty: Family Practice Address: [address] [place] [address], [id number] Email: [email or web address] Plan Of Care PT-OP-T Assessment and Plan Start: 04/03/19 17:40 Freq: Status: Active Protocol: Document 06/02/19 11:15 AMB (Rec: 06/02/19 17:08 AMB [email or web address]) Physical Therapy Assessment Goals Three Impairment Decreased lumbar flexion and tightness of the paraspinals, anterior pelvis Package Sealer Goal (LTG) Nesha presents with improved lumbar motion into flexion and there is decreased guarding of the lumbar parapsinals creating the ability for her pelvis to rest in neutral rather than a anterior pelvic tilt. LTG Duration NOT YET MET Two Impairment Instability of the SI joint and pelvis + ASLR test B Short Term Goal (STG) With proper stabilization Nesha is able to move her hips independent of her pelvis moving STG Duration MET Shelter Goal (LTG) With proper stabilization Nesha is able to perform a split squat without abdominal bulging and good SI support LTG Duration MET One Impairment Abdominal bulging and seperation with diastasis recti Short Term Goal (STG) Nesha is educated on Transverse abdominal facilitation prior to LE movement in a supine position and she is able to control abdominal bulging with heel slides STG Duration MET Package Sealer Goal (LTG) Nesha is able to control abdominal bulging with a gentle curl up using her transverse abdominal muscles LTG Duration MET Assessment Summary Assessment Nesha has improved her SLR and curl up without coning. She continues to standing in anterior pelvic tilt but is able to come out of it with cues. Nesha has otherwise met the majority of her goals, she continues to have a 1.5 finger width diastasis, but this is less width than at eval. She is continuing to hope that this will continue to improve with more core progression. She would benefit from a few more visits of PT to finalize her program and progress it as much as possible. Physical Therapy Plan Frequency and Duration Frequency of Treatment 1x/Week Duration of Treatment 4 weeks Plan of Care Start Date 06/02/19 Plan of Care End Date 06/30/19 Therapeutic Interventions Therapeutic Interventions Home Exercise Program Manual Therapy Neuromuscular Re-education Patient/Caregiver Education Self-Care/Home Management Soft Tissue Mobilization Therapeutic Exercises Modalities Biofeedback Next Visit Focus/Plan Next Note Type Treatment Note Next Visit Plan Begin to finalize HEP Plan of Care Dates Plan of Care Start Date 06/02/19 Plan of Care End Date 06/30/19 Please Sign and Return: I have reviewed this Plan of Care and certify that the skilled therapy services above are required to meet the patient?s needs. Physician Signature Date Printed Name and Credentials Clinical Instructor Signature Printed Name and Credentials
--- NOTE | 2019-06-12 16:15 | PT.OTN ---
Current Diagnoses Separation of muscle (nontraumatic), other site (06/10/19) Physical Therapy Treatment Note PT-OP-A Visit Information Start: 04/03/19 17:40 Freq: Status: Active Protocol: Document 06/10/19 11:15 AMB (Rec: 06/10/19 16:15 AMB [email or web address]) Out-Patient Physical Therapy Visit Information Visit Information Visit Type Treatment Note Visit Start Time 11:15 Visit Stop Time 12:00 Total Visit Minutes 45 Visit Number 8 PT-OP-B Current Condition Start: 04/03/19 17:40 Freq: Status: Active Protocol: Document 04/02/19 11:15 AMH (Rec: 04/03/19 18:24 AMH [email or web address]) Current Condition History of Current Condition Onset Date 2 years ago 2017 Current Complaints abdominal seperation and weakness of the core Treatment Goals Patient/Caregiver Goals To improve lower abdominal strength and feel like she can work her abdominals safely without harm Current Functional Impairments (Reported) Functional Limitations- ADL's weakness with activities that require trunk control including lifting, bending and abdominal work PT-OP-C Subjective Start: 04/03/19 17:40 Freq: Status: Active Protocol: Document 06/10/19 11:15 AMB (Rec: 06/10/19 16:15 AMB [email or web address]) OP-PT Subjective Patient Comments Patient Comments Nesha did notice coning when she was stretching her back, but otherwise has been very aware of her body mechanics and is excited that it is helping, she does still notice some leaks with kickball. PT-OP-F Manual Assessment Start: 04/03/19 17:40 Freq: Status: Active Protocol: Document 04/02/19 11:15 AMH (Rec: 04/03/19 18:24 AMH [email or web address]) Manual Assessments Soft Tissue Assessment Soft Tissue Mobility Assessment tightness of the lumbar and lower thoracic paraspinals 3 finger width diastasis seperation proximal to umbilicus and 4 finger width distal to umbilicus Joint Mobility Assessment Joint Mobility Assessment lacks full lumbar spine flexion, tends to stay in extension + ALSR test B with abdominal bulge when attempting to lift her legs Other Manual Assessments Other Manual Assessments decreased lumbar active ROM in standing and difficulty laying flat in supine PT-OP-J Posture/Palpation/Skin Start: 04/03/19 17:40 Freq: Status: Active Protocol: Document 04/02/19 11:15 AMH (Rec: 04/03/19 18:24 AMH [email or web address]) Palpation Assessment Location One Palpation Location thoracic and lumbar paraspinals Palpation Findings Soft Tissue Tightness Muscle Guarding PT-OP-M Strength Start: 04/03/19 17:40 Freq: Status: Active Protocol: Document 04/02/19 11:15 AMH (Rec: 04/03/19 18:24 AMH [email or web address]) Trunk Strength Trunk Manual Muscle Testing Testing Position Supine Flexion 2+ Poor+ Core Stabilization poor core control of lower abdominal muscles, abdominal bulging present with active leg movements PT-OP-Q Treatments Start: 04/03/19 17:40 Freq: Status: Active Protocol: Document 06/10/19 11:15 AMB (Rec: 06/12/19 16:14 AMB [email or web address]) Therapeutic Exercises Supine Exercises 7 Supine Exercise Name modified air bike Reps/Minutes 10 Comments one leg bent, one straight with pause between reps to reset 1 Supine Exercise Name TA engagement with heel slide and marches Side bilateral Comments table top and slowly lower alt bent leg Standing Exercises 4 Standing Exercise Name pelvic tilt with pelvic floor Comments avoiding lumbar lordosis 1 Standing Exercise Name mini squats Reps/Minutes 15 Comments with TA and pelvic floor Other Exercises 2 Other Exercise Name Quadraped TA facilitation Side bilateral Reps/Minutes x 10 reps Comments worked on elevator floors with contraction for eccentric control PT-OP-T Assessment and Plan Start: 04/03/19 17:40 Freq: Status: Active Protocol: Document 06/10/19 11:15 AMB (Rec: 06/10/19 16:15 AMB [email or web address]) Physical Therapy Assessment Assessment Summary Assessment Nesha was able to lift with good TrA engagement, but loses her pelvic floor strength with squatting. Physical Therapy Plan Next Visit Focus/Plan Next Note Type Discharge Summary
--- NOTE | 2019-06-16 16:00 | PT.OTN ---
Current Diagnoses Separation of muscle (nontraumatic), other site (06/16/19) Physical Therapy Treatment Note PT-OP-A Visit Information Start: 04/03/19 17:40 Freq: Status: Active Protocol: Document 06/16/19 13:45 AMB (Rec: 06/17/19 07:25 AMB [email or web address]) Out-Patient Physical Therapy Visit Information Visit Information Visit Type Discharge Summary Visit Start Time 13:45 Visit Stop Time 14:30 Total Visit Minutes 45 Visit Number 9 PT-OP-B Current Condition Start: 04/03/19 17:40 Freq: Status: Active Protocol: Document 04/02/19 11:15 AMH (Rec: 04/03/19 18:24 AMH [email or web address]) Current Condition History of Current Condition Onset Date 2 years ago 2017 Current Complaints abdominal seperation and weakness of the core Treatment Goals Patient/Caregiver Goals To improve lower abdominal strength and feel like she can work her abdominals safely without harm Current Functional Impairments (Reported) Functional Limitations- ADL's weakness with activities that require trunk control including lifting, bending and abdominal work PT-OP-C Subjective Start: 04/03/19 17:40 Freq: Status: Active Protocol: Document 06/16/19 13:45 AMB (Rec: 06/17/19 07:25 AMB [email or web address]) OP-PT Subjective Patient Comments Patient Comments Pt was able to play three games of kick ball without leaking. She did kegels during the breaks between the games. Overall she feels ready to return to the gym and continue exercising independently at this time. PT-OP-F Manual Assessment Start: 04/03/19 17:40 Freq: Status: Active Protocol: Document 04/02/19 11:15 AMH (Rec: 04/03/19 18:24 AMH [email or web address]) Manual Assessments Soft Tissue Assessment Soft Tissue Mobility Assessment tightness of the lumbar and lower thoracic paraspinals 3 finger width diastasis seperation proximal to umbilicus and 4 finger width distal to umbilicus Joint Mobility Assessment Joint Mobility Assessment lacks full lumbar spine flexion, tends to stay in extension + ALSR test B with abdominal bulge when attempting to lift her legs Other Manual Assessments Other Manual Assessments decreased lumbar active ROM in standing and difficulty laying flat in supine PT-OP-J Posture/Palpation/Skin Start: 04/03/19 17:40 Freq: Status: Active Protocol: Document 04/02/19 11:15 AMH (Rec: 04/03/19 18:24 AMH [email or web address]) Palpation Assessment Location One Palpation Location thoracic and lumbar paraspinals Palpation Findings Soft Tissue Tightness Muscle Guarding PT-OP-M Strength Start: 04/03/19 17:40 Freq: Status: Active Protocol: Document 04/02/19 11:15 AMH (Rec: 04/03/19 18:24 AMH [email or web address]) Trunk Strength Trunk Manual Muscle Testing Testing Position Supine Flexion 2+ Poor+ Core Stabilization poor core control of lower abdominal muscles, abdominal bulging present with active leg movements PT-OP-Q Treatments Start: 04/03/19 17:40 Freq: Status: Active Protocol: Document 06/16/19 13:45 AMB (Rec: 06/17/19 07:25 AMB [email or web address]) Therapeutic Exercises Supine Exercises 7 Supine Exercise Name modified air bike Reps/Minutes 10 Comments one leg bent, one straight with pause between reps to reset 6 Supine Exercise Name TA lower abdominal progression level 1b Comments march up up down down 1 Supine Exercise Name TA engagement with heel slide and marches Side bilateral Comments table top and slowly lower alt bent leg Standing Exercises 4 Standing Exercise Name pelvic tilt with pelvic floor Comments avoiding lumbar lordosis 1 Standing Exercise Name mini squats Reps/Minutes 15 Comments with TA and pelvic floor Other Exercises 5 Other Exercise Name forearm plank, kneeling Reps/Minutes 15x2 2 Other Exercise Name Quadraped TA facilitation Side bilateral Reps/Minutes x 10 reps Comments worked on elevator floors with contraction for eccentric control PT-OP-T Assessment and Plan Start: 04/03/19 17:40 Freq: Status: Active Protocol: Document 06/16/19 13:45 AMB (Rec: 06/17/19 07:25 AMB [email or web address]) Physical Therapy Assessment Goals Three Impairment Decreased lumbar flexion and tightness of the paraspinals, anterior pelvis 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 LTG Duration MET Two Impairment Instability of the SI joint and pelvis + ASLR test B Short Term Goal (STG) With proper stabilization Nesha is able to move her hips independent of her pelvis moving STG Duration MET Fdc Goal (LTG) With proper stabilization Nesha is able to perform a split squat without abdominal bulging and good SI support LTG Duration MET One Impairment Abdominal bulging and seperation with diastasis recti Short Term Goal (STG) Nesha is educated on Transverse abdominal facilitation prior to LE movement in a supine position and she is able to control abdominal bulging with heel slides STG Duration MET 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 She continues to have back pain with tightness in her back, but has improved in her ability to self correct her posture when she is thinking about it. She also has decreased her stress urinary incontinence symptoms. She will need to continue to be mindful of her progression of exercises, but should be able to continue to improve independently at this time. Physical Therapy Plan Discharge Physical Therapy Discharge Reasons Goals Met
== END 2019-06-17 11:00 | disposition home or self-care (01) ==
LOC: PHYS 13:45
PROVIDERS: PCP Family Medicine; Visit Provider Family Medicine
DX: M62.08 Separation of muscle (nontraumatic), other site (principal)
CPT/HCPCS: 97110; 97112; 97161

== ENCOUNTER → 2019-10-08 11:38 | Outpatient (CLI) | payer OTHER, SELFPAY | PROVIDERS: PCP Family Medicine; Visit Provider Nurse Practitioner Family | DX: F41.9 Anxiety disorder, unspecified (principal) | CPT/HCPCS: 36415; 84443 ==

== ENCOUNTER → 2020-05-23 09:21 | Outpatient (CLI) | payer OTHER, SELFPAY ==
--- NOTE | 2020-05-23 09:23 | DI.RAD.S_ITS ---
PROCEDURE: XR FOOT LT MIN 3V INDICATIONS: tripped and injured 5th toe TECHNIQUE: 3 views of the foot were acquired. COMPARISON: None. FINDINGS: Bones: No fractures or dislocations. No suspicious bony lesions. Soft tissues: No tibiotalar joint effusion. Achilles tendon appears normal. IMPRESSION: No fracture. If clinical symptoms/suspicion for pathology persist, repeat plainfilms and/or advanced imaging recommended. Dictated by: Sumi Arambula M.D. on 05/23/2020 at 8:39 Approved by: Sumi Arambula M.D. on 05/23/2020 at 8:40
--- NOTE | 2020-05-23 09:23 | DI.RAD.S_ITS ---
PROCEDURE: XR HAND LT MIN 3V INDICATIONS: injured 5th digit from fall TECHNIQUE: 3 views of the hand(s) acquired. COMPARISON: None. FINDINGS: Bones: Linear lucency traverses the proximal phalanx 5th digit. Carpal bones are normally aligned. No suspicious bony lesions. Soft tissues: No suspicious soft tissue calcifications. IMPRESSION: 5th digit fracture. Dictated by: Sumi Arambula M.D. on 05/23/2020 at 8:37 Approved by: Sumi Arambula M.D. on 05/23/2020 at 8:39
== END ==
PROVIDERS: PCP Family Medicine; Referring Provider Physician Assistant; Visit Provider Physician Assistant
DX: S62.617A Displaced fracture of proximal phalanx of left little finger, initial encounter for closed fracture (principal); S99.922A Unspecified injury of left foot, initial encounter; W01.0XXA Fall on same level from slipping, tripping and stumbling without subsequent striking against object, initial encounter
CPT/HCPCS: 73130; 73630

== ENCOUNTER → 2024-06-05 08:13 | Outpatient (CLI) | payer OTHER, SELFPAY ==
[2024-06-05 08:49] LABS: Hemoglobin A1C% w Est Avg Glu 6.3 % (4.0-6.0)
[2024-06-05 09:07] LABS: Cholesterol 216 mg/dL (140-199); HDL Cholesterol 47 mg/dL (40-60); LDL Cholesterol Calculated 122 mg/dL (<100); Triglycerides 234 mg/dL (35-150)
--- NOTE | 2024-06-05 13:58 | DI.MG.S_ITS ---
BILATERAL DIGITAL SCREENING MAMMOGRAM 3D/2D WITH CAD: 06/05/2024 CLINICAL: Baseline exam. Routine screening. No prior exams were available for comparison. Both breasts are almost entirely fatty (category a/<25% glandular tissue). Current study was also evaluated with a Computer Aided Detection (CAD) system. No significant masses, calcifications, or other findings are seen in either breast. IMPRESSION: NEGATIVE There is no mammographic evidence of malignancy. A 1 year screening mammogram is recommended. Based on the Tyrer Cuzick model (a risk assessment model) the patient's lifetime risk is 6.6% and her 10 year risk is 0.8%. According to the ACR, ACS, and NCCN guidelines, an annual breast MRI exam along with mammogram is recommended if the patient's lifetime risk is 20% or greater. This exam was interpreted at Station ID: [id number]. NOTE: For mammograms, a report in lay terms will be sent to the patient. Approximately 15% of breast malignancies will not be visualized mammographically. In the management of a palpable breast mass, a negative mammogram must not discourage biopsy of a clinically suspicious lesion. Electronically Signed By: Dylan griffith/augustine:06/05/2024 16:31:29 letter sent: Normal Exam ACR BI-RADS Category 1: Negative 3341F
== END ==
PROVIDERS: PCP Family Medicine; Referring Provider Family Medicine; Visit Provider Family Medicine
DX: Z12.31 Encounter for screening mammogram for malignant neoplasm of breast (principal); R92.313 Mammographic fatty tissue density, bilateral breasts; E78.5 Hyperlipidemia, unspecified; Z13.1 Encounter for screening for diabetes mellitus
CPT/HCPCS: 36415; 77063; 77067; 80061; 83036

== ENCOUNTER → 2024-06-09 09:47 | Outpatient (CLI) | payer OTHER, SELFPAY ==
--- NOTE | 2024-06-09 09:47 | DI.US.S_ITS ---
PROCEDURE: US PELVIC COMPLETE INDICATIONS: menorrhagia TECHNIQUE: Real-time scanning was performed of the pelvic organs, with image documentation. Additional endovaginal scanning was necessary due to incomplete visualization of the adnexal and endometrial structures by transabdominal scanning. COMPARISON: None. FINDINGS: Uterus: Uterus is retroverted and normal in size at 8.2 x 4.2 x 5.5 cm. The myometrium is heterogeneous. The endometrium measures 10 mm combined thickness. Ovaries: The right ovary is not seen. The left ovary measures 4.4 x 1.9 x 2.3 cm, with a calculated ovarian volume of 4.2 cc. Normal sonographic appearance of left ovary. No adnexal masses. Other: No pathologic free abdominal or pelvic fluid. IMPRESSION: Endometrium is normal in thickness measuring 10 mm. Right ovary is not seen. Left ovary is normal in appearance. We strive to produce accurate, complete, and clear reports of imaging services. To assist us in improving patient care, this report was composed using standard report templates and voice recognition software. Therefore, it may contain abnormal punctuation, insertions and/or omissions. Occasional wrong-word or sound-alike substitutions may occur. Though we review the report and make efforts to correct it, we do recommend that the report be read carefully in proper context to recognize any text inaccuracies. Dictated by: Travis Elizondo M.D. on 06/09/2024 at 13:53 Approved by: Travis Elizondo M.D. on 06/09/2024 at 13:59
== END ==
LOC: US 09:47
PROVIDERS: PCP Family Medicine; Referring Provider Family Medicine; Visit Provider Family Medicine
DX: N92.0 Excessive and frequent menstruation with regular cycle (principal)
CPT/HCPCS: 76856

== ENCOUNTER 2024-07-29 06:47 | Day surgery (SDC) | payer OTHER, SELFPAY ==
[2024-07-24 15:22] VITALS: BMI 46.0
--- NOTE | 2024-07-29 | PATH_ITS ---
[facility] Accession Number: [id number] No. of containers..01 Tissue . 01 Material submitted: . endometrium - ENDOMETRIAL CURRETTINGS . 01 Diagnosis: ENDOMETRIUM, CURETTINGS: Features suggestive of benign endometrial polyp. Background proliferative endometrium. No endometrioid intraepithelial neoplasia and no malignancy. ALETA 08/01/2024 1106 Local . 01 Electronically signed: . Pia Mccollum MD, Pathologist NPI- [id number] . 01 Gross description: . Received in formalin with two patient identifiers and endometrial curetting, are multiple mcdermott soft tissue fragments admixed in mucoid material received on Telfa paper aggregating to 2.0 x 1.5 x 0.2 cm. Filtered and submitted entirely in A1. ([id number]) /MRV 07/30/2024 1818 Local . 01 Pathologist provided ICD-10: N84.0 . 01 CPT . 784341 Specimen Comment: A courtesy copy of this report has been sent to [phone] Performed at: [address], [place], [place] [id number] MD Kosta Baldwin MD Phone: [phone]
[2024-07-29] MEDS: LACTATED RINGERS 1,000 ML 42 ML IV (07:00)
[2024-07-29] MEDS: SCOPOLAMINE 1 PATCH TOP (07:01)
[2024-07-29] MEDS: ACETAMINOPHEN 325 MG TABLET 975 MG PO (07:01)
[2024-07-29 07:10] VITALS: BP 149/92; PULSE 94; RESP 16; TEMP 36.8; O2SAT 98; BMI 45.1
--- NOTE | 2024-07-29 08:04 | PM.GYNHP.1 ---
History of Present Illness History of Present Illness Reason for admission: vaginal bleeding (Heavy) Narrative: Nesha Hdez is a 39 year old female 2 para 2 with menorrhagia. She presents for a D&C hysteroscopy with NovaSure endometrial ablation. [facility] Medical History BMI 45.0-49.9, adult Prediabetes Finger fracture, left Anxiety (2013) Depression (2013) Asthma (~1999) Chicken pox (~1988) Heavy menstrual period (~05/2017) Surgical History Anesthesia History of third molar tooth extraction (~2005) Status post appendectomy (02/05/17) Status post delivery (10/17/16) Status post delivery (02/28/14) Family History Grandfather Cancer Diabetes mellitus Grandmother Stroke Grandmother Mental health problem Grandfather Diabetes mellitus Social History household members: spouse Smoking Status: Never smoker alcohol intake: current Meds Home Medications and Allergies Home Medications Medication Instructions Recorded Confirmed Type fluticasone propionate 50 1 spray intranasal DAILY 11/30/20 07/29/24 History mcg/actuation nasal spray,suspension (Flonase Allergy Relief) REsMed AirSense 11 01/03/22 07/14/24 History omeprazole 20 mg capsule,delayed 20 mg PO BID #180 caps 02/21/23 07/29/24 Rx release escitalopram oxalate 10 mg tablet See Rx Instructions .Route 05/22/24 07/29/24 Rx .COMPLEX #90 tabs fexofenadine 180 mg tablet 180 mg PO DAILY #30 tabs 07/16/24 07/29/24 Rx Allergies Allergy/AdvReac Type Severity Reaction Status Date / Time No Known Drug Allergies Allergy Verified 07/29/24 07:03 Exam Vital Signs (past 8 hours): - 07/29/24 07:10 Temperature 98.2 F Pulse Rate 94 H Respiratory Rate 16 Blood Pressure 149/92 H Pulse Oximetry 98 Oxygen Delivery Method Room Air Oxygen Delivery Method Room Air Narrative Exam Narrative: HEENT: No thyromegaly, no anterior cervical or supraclavicular lymphadenopathy. Lungs:Clear to auscultation bilaterally, no wheezes. Cardiovascular: Regular rate and rhythm, no murmurs, rubs, or gallops. Abdomen: Well-healed Pfannenstiel scars. No hepatosplenomegaly. No masses palpable. External genitalia: Normal Vagina: Normal Cervix: Normal Bimanual exam: 8 Week size anteverted uterus. Mobile. Extremities: No edema Assessment & Plan Assessment & Plan narrative: Assessment: 39-year-old 2 para 2 with menorrhagia Requests definitive surgical management Plan: D&C hysteroscopy with NovaSure endometrial ablation The risks, benefits, and alternatives to the procedure were explained to the patient. The risks including bleeding, infection, and uterine perforation. She understands these risks and agrees to proceed. A full par Q was held and consent form was signed. Time-Based Coding :: [TOTAL MINUTES] spent with patient and on the chart (including review of chart, obtaining history, exam, reviewing outside data, placing orders, documenting exam and treatment plan, and counseling patient) on [DATE].
--- NOTE | 2024-07-29 08:06 | PM.PREOP ---
Pre-operative Note Interval Note History & Physical reviewed/Exam performed by Physician: Yes Changes to H&P: No H&P completed within 30 days and has changed as indicated here:: 07/29/24
--- NOTE | 2024-07-29 08:25 | SUR.OPER ---
Lithotomy on padded OR bed, head on pillow, arms secured on padded arm boards at <90 degrees abduction. Legs secured in padded yellow fins stirrups.
--- NOTE | 2024-07-29 08:57 | P.OP_ITS ---
Operative Date/Time/Diagnoses Date of procedure: 07/29/24 Time of procedure: 08:57 Pre-op diagnosis: Menorrhagia Post-op diagnosis: same Procedure & Clinicians Procedure: Procedures Operation Date: 07/29/24 08:00 <No data on this case meets the specified criteria> Indications: 39-year-old 2 para 2 with menorrhagia, desires surgical management Surgeon: Skyla Camacho Anesthesia Type: General (LMA) Operative Notes Findings: 8 week size slightly retroverted uterus Both fallopian tube ostia observed Small false tract Closure Type: not applicable Specimen(s): endometrial curettings Estimated blood loss (mL): 10 Blood products transfused: none Procedure in detail: After informed consent was obtained, the patient was taken to the operating room where she was placed in the dorsal supine position. After adequate LMA general anesthesia was achieved, she was placed in the dorsal lithotomy position, and prepped and draped in the usual sterile fashion. A time-out was performed. A bivalve speculum was placed into the vagina and the anterior lip of the cervix was grasped with a single-tooth tenaculum. The uterus sounded to 7 cm. The cervix was dilated using the Hegar dilators to the # 8 Hegar dilator. Initially the hysteroscope was placed and did not advance very far and appeared to be in a false tract. The hysteroscope was removed. The Hegar dilators were used to find the correct tract which was slightly retroverted. The hysteroscope was then directed retroverted. Both fallopian tube ostia were observed. The hysteroscope was removed. Sharp curettage was performed yielding a large amount of endometrial curettings. The uterus was sounded from the internal os to the fundus and measured 5 cm. This was set on the NovaSure catheter and the generator. The NovaSure catheter was directed in a retroverted direction and p assed easily into the endometrial cavity. It was opened. The width was 4.1 cm. This was set on the generator. This indicated a power of 113 w. The cervix was capped, the cavity assessment was performed and passed. The cycle was initiated and lasted 1 minute and 53 seconds. At the completion of the cycle, the NovaSure catheter was closed, the cervix was uncapped, and the catheter was removed from the uterus without difficulty. Single-tooth tenaculum was removed from the anterior lip of the cervix. The bivalve speculum was removed from the vagina. Sponge, lap, and instrument counts were correct x2. The patient tolerated the procedure well, and was taken to PACU in stable condition. Complications: none Post-operative Condition: stable Disposition: PACU Plan for aftercare: Home after recovery
[2024-07-29 09:03] VITALS: BP 91/48; PULSE 90; RESP 16; TEMP 36.1; O2SAT 98
[2024-07-29 09:06] VITALS: BP 104/46; PULSE 85; RESP 12; O2SAT 96
[2024-07-29 09:11] VITALS: BP 96/56; PULSE 85; RESP 12; O2SAT 95
[2024-07-29 09:19] VITALS: BP 107/64; PULSE 78; RESP 12; O2SAT 95
[2024-07-29 09:37] VITALS: BP 118/74; PULSE 76; RESP 14; TEMP 36.3; O2SAT 96
== END 2024-07-29 09:45 | disposition home or self-care (01) ==
PROVIDERS: PCP Family Medicine; Referring Provider Obstetrics & Gynecology; Visit Provider Obstetrics & Gynecology
PROC: 0U5B8ZZ Destruction of Endometrium, Via Natural or Artificial Opening Endoscopic (ICD-10-PCS; CPT 58563; principal; 2024-07-29 08:00)
DX: N92.0 Excessive and frequent menstruation with regular cycle (principal)
CPT/HCPCS: 58563; J0330; J1100; J1885; J2250; J2405; J2704; J3010; J3490

== ENCOUNTER → 2024-12-18 07:43 | Outpatient (CLI) | payer OTHER, SELFPAY ==
[2024-12-18 08:31] LABS: Hemoglobin A1C% w Est Avg Glu 5.8 % (4.0-6.0)
== END ==
LOC: LAB 07:44
PROVIDERS: PCP Family Medicine; Referring Provider Family Medicine; Visit Provider Family Medicine
DX: R73.03 Prediabetes (principal)
CPT/HCPCS: 36415; 83036

== ENCOUNTER → 2025-10-02 15:38 | Outpatient (CLI) | payer OTHER, SELFPAY ==
--- NOTE | 2025-10-02 15:39 | DI.MG.S_ITS ---
MM screening mammo BI: 10/02/2025. BI-RADS: 1 CLINICAL: 40-year old female for bilateral screening mammogram. Tyrer-Cuzick lifetime risk of 7.7%. No personal or first-degree family history of breast cancer. PRIOR EXAMS 06/05/2024. MAMMOGRAPHY TECHNIQUE: 2D and 3D (tomosynthesis) digital mammographic views obtained, with additional images as needed for full coverage. Current study was also evaluated with a Computer Aided Detection (CAD) system. DENSITY A. The breasts are almost entirely fatty. MAMMOGRAPHY FINDINGS Bilateral: No suspicious mass, asymmetry, microcalcification, or other abnormality seen. IMPRESSION: * No evidence of malignancy. RECOMMENDATIONS Bilateral * Annual screening mammography. OVERALL ASSESSMENT CATEGORY BI-RADS-1: Negative. The [employer] recommends annual screening mammography beginning at age 40 for women with average risk of breast cancer. ELECTRONICALLY SIGNED: Dylan Kuo M.D. on 10/04/2025 at 07:54:01 PM PT Interpreting Station ID: [id number]
== END ==
LOC: MAMMO 15:38
PROVIDERS: PCP Family Medicine; Referring Provider Family Medicine; Visit Provider Family Medicine
DX: Z12.31 Encounter for screening mammogram for malignant neoplasm of breast (principal); R92.313 Mammographic fatty tissue density, bilateral breasts
CPT/HCPCS: 77063; 77067